=== PATIENT | female | born 1995 | race Caucasian/White ===

== ENCOUNTER 2018-06-10 18:42 | Emergency (ER) | payer OTHER ==
[2018-06-10] MEDS ORDERED: PROMETHAZINE HCL INJ 50 MG/1 ML VIAL IM PRN (19:35)
[2018-06-10] MEDS ORDERED: RINGERS SOLUTION,LACTATED 1,000 ML IV ONE (19:36)
--- NOTE | 2018-06-10 19:37 | ER Document Report ---
ED Medical Screen (RME) - General Chief Complaint: Flu Symptoms Stated Complaint: VOMITING/FEVER Time Seen by Provider: 06/10/18 19:35 Notes: 23 years old female who is about 5 months presents today with nausea and vomiting. No diarrhea. She was exposed to her son who had gastroenteritis. - Related Data Allergies/Adverse Reactions: No Known Allergies Allergy (Unverified 06/10/18 18:46) Physical Exam - Vital signs Vitals: Temp Pulse Resp BP Pulse Ox 98.4 F 108 H 18 110/73 100 06/10/18 18:53 06/10/18 18:53 06/10/18 18:53 06/10/18 18:53 06/10/18 18:53 Course - Vital Signs Vital signs: Temp Pulse Resp BP Pulse Ox 98.4 F 108 H 18 110/73 100 06/10/18 18:53 06/10/18 18:53 06/10/18 18:53 06/10/18 18:53 06/10/18 18:53
[2018-06-10] MEDS ORDERED: PROMETHAZINE HCL INJ 25 MG/1 ML VIAL ONE (20:15)
[2018-06-10 21:06] LABS: A TYPE INFLUENZA AG NEGATIVE (NEGATIVE); B INFLUENZA AG NEGATIVE (NEGATIVE)
--- NOTE | 2018-06-10 21:30 | ER Document Report ---
ED GI/ - General Chief Complaint: Flu Symptoms Stated Complaint: VOMITING/FEVER Time Seen by Provider: 06/10/18 19:35 Notes: Patient is a 23-year-old female that comes to the emergency department for chief complaint of vomiting and diarrhea, approximately 8 times of each, symptoms started today. Denies fever. Patient is at 20 weeks gestation. She denies abdominal pain, she denies vaginal bleeding or discharge, she states she is feeling baby moving normally. She was medicated in triage, she states she is much improved after this, she has started drinking fluids. Patient was exposed to her 2-year-old son who has had nausea, vomiting, diarrhea, and fever for the past 4 days. Patient takes no daily medications, denies any medical history. Has been at bedside. TRAVEL OUTSIDE OF THE [place] IN LAST 30 DAYS: No - Related Data Allergies/Adverse Reactions: No Known Allergies Allergy (Unverified 06/10/18 18:46) Past Medical History - General Information source: Patient - Social History Smoking Status: Never Smoker Frequency of alcohol use: None Drug Abuse: None Lives with: Family Family History: Reviewed & Not Pertinent Patient has suicidal ideation: No Patient has homicidal ideation: No - Medical History Medical History: Negative Renal/ Medical History: Denies: Hx Peritoneal Dialysis Surgical Hx: Negative - Immunizations Immunizations up to date: Yes Hx Diphtheria, Pertussis, Tetanus Vaccination: Yes Review of Systems - Review of Systems Constitutional: No symptoms reported EENT: No symptoms reported Cardiovascular: No symptoms reported Respiratory: No symptoms reported Gastrointestinal: See HPI Genitourinary: No symptoms reported Female Genitourinary: See HPI Musculoskeletal: No symptoms reported Skin: No symptoms reported Hematologic/Lymphatic: No symptoms reported Neurological/Psychological: No symptoms reported Physical Exam - Vital signs Vitals: Temp Pulse Resp BP Pulse Ox 98.4 F 108 H 18 110/73 100 06/10/18 18:53 06/10/18 18:53 06/10/18 18:53 06/10/18 18:53 06/10/18 18:53 - Notes Notes: GENERAL: Alert, interacts well. No acute distress. HEAD: Normocephalic, atraumatic. EYES: Pupils equal, round, and reactive to light. Extraocular movements intact. ENT: Oral mucosa very dry, tongue midline. Oropharynx unremarkable. Airway patent. Nares patent, no nasal septal hematoma, TM's intact. NECK: Full range of motion. Supple. Trachea midline. LUNGS: Clear to auscultation bilaterally, no wheezes, rales, or rhonchi. No respiratory distress. HEART: Regular rate and rhythm. No murmur ABDOMEN: Gravid abdomen, nontender, no signs of guarding or rigidity. GENITOURINARY: Deferred EXTREMITIES: Moves all 4 extremities spontaneously. No edema, normal radial and dorsalis pedis pulses bilaterally. No cyanosis. BACK: no cervical, thoracic, lumbar midline tenderness. No saddle anesthesia, normal distal neurovascular exam. NEUROLOGICAL: Alert and oriented x3. Normal speech. [cranial nerves II through XII grossly intact]. PSYCH: Normal affect, normal mood. SKIN: Warm, dry, normal turgor. No rashes or lesions noted. Course - Re-evaluation Re-evalutation: Patient is smiling and well-appearing. Unremarkable abdomen. CBC unremarkable, influenza is negative, urinalysis shows ketones and elevated specific gravity. Patient was given 2 IV normal saline boluses. After Phenergan she states she feels excellent, she tolerated p.o. without any difficulty. She does have sick family members. Requesting to leave. Tachycardia has resolved. Because she did so well with Phenergan here she will be provided with Phenergan at home. I do suspect this is viral. Discussed with patient expectations, follow-up, and return precautions in detail. Patient states satisfaction and agreement. Stable at time of discharge. - Vital Signs Vital signs: Temp Pulse Resp BP Pulse Ox 98.2 F 78 18 125/68 99 06/10/18 23:45 06/10/18 23:45 06/10/18 23:45 06/10/18 23:45 06/10/18 23:45 - Laboratory Result Diagrams: 06/10/18 21:38 Laboratory results interpreted by me: 06/10/18 06/10/18 21:30 21:38 Carbon Dioxide 21 L Creatinine 0.51 L Urine Protein 30 H Urine Ketones 80 H Discharge - Discharge Clinical Impression: Nausea vomiting and diarrhea, Dehydration Condition: Stable Disposition: HOME, SELF-CARE Additional Instructions: Continue rehydration at home. Take Phenergan as needed for nausea/vomiting, start with clear fluids, progress to bland diet. Follow-up with primary care/[facility]. Return if you worsen including abdominal pain that is worsening, vomiting that is not controlled, dizziness, vaginal bleeding, or any other concerning or worsening symptoms. Prescriptions: Promethazine HCl [Phenergan 25 mg Tablet] 25 mg PO Q6H PRN #15 tablet PRN Reason:
[2018-06-10 22:01] LABS: APPEARANCE,URINE CLOUDY; BILIRUBIN,URINE NEGATIVE (NEGATIVE); COLOR,URINE YELLOW; GLUCOSE, URINE NEGATIVE (NEGATIVE); KETONES,URINE 80 mg/dL (NEGATIVE); LEUKOCYTE ESTERASE,URINE NEGATIVE (NEGATIVE); NITRITE,URINE NEGATIVE (NEGATIVE); PROTEIN,URINE 30 mg/dL (NEGATIVE); URINE SPECIFIC GRAVITY 1.029; UROBILINOGEN,URINE NEGATIVE mg/dL (<2.0)
[2018-06-10 22:12] LABS: ALANINE AMINOTRANSFERASE 33 U/L (9-52); ALKALINE PHOSPHATASE 90 U/L (38-126); ANION GAP 10 (5-19); ASPARTATE AMINO TRANSFERASE 32 U/L (14-36); BILIRUBIN,DIRECT 0.2 mg/dL (0.0-0.4); BILIRUBIN,TOTAL 0.5 mg/dL (0.2-1.3); BLOOD UREA NITROGEN 9 mg/dL (7-20); CALCIUM 10.1 mg/dL (8.4-10.2); CARBON DIOXIDE 21 mmol/L (22-30); CHLORIDE 107 mmol/L (98-107); GLUCOSE 82 mg/dL (75-110); POTASSIUM 4.5 mmol/L (3.6-5.0); SODIUM 137.7 mmol/L (137-145)
[2018-06-10] MEDS ORDERED: NORMAL SALINE 1000 ML 1,000 ML IV ONE (22:20)
[2018-06-11 02:58] VITALS: BP 125/68
== END 2018-06-10 23:45 | disposition home or self-care (01) ==
LOC: ER 18:42
DX: O26.92 Pregnancy related conditions, unspecified, second trimester (principal); E86.0 Dehydration; R50.9 Fever, unspecified; R11.2 Nausea with vomiting, unspecified; R19.7 Diarrhea, unspecified; Z3A.20 20 weeks gestation of pregnancy
CPT/HCPCS: 99283; 96372; 96360; 36415; 80053; 81001; 87804; J2550; J7030; J7120

== ENCOUNTER 2018-08-15 13:49 | Outpatient (CLI) | payer OTHER ==
[2018-08-15] MEDS ORDERED: DIPHENHYDRAMINE HCL 25 MG CAPSULE PO PRN (14:05)
[2018-08-15 15:24] LABS: APPEARANCE,URINE CLOUDY; BILIRUBIN,URINE NEGATIVE (NEGATIVE); CALCIUM OXALATE CRYSTALS,URINE FEW /HPF; COLOR,URINE YELLOW; GLUCOSE, URINE NEGATIVE (NEGATIVE); KETONES,URINE TRACE mg/dL (NEGATIVE); LEUKOCYTE ESTERASE,URINE SMALL (NEGATIVE); NITRITE,URINE NEGATIVE (NEGATIVE); PROTEIN,URINE NEGATIVE (NEGATIVE); URINE SPECIFIC GRAVITY 1.029; UROBILINOGEN,URINE NEGATIVE mg/dL (<2.0)
[2018-08-15 15:37] LABS: URINE AMPHETAMINES SCREEN NEGATIVE; URINE BARBITURATES SCREEN NEGATIVE; URINE BENZODIAZEPINES SCREEN NEGATIVE; URINE COCAINE SCREEN NEGATIVE; URINE MARIJUANA (THC) SCREEN NEGATIVE; URINE METHADONE SCREEN NEGATIVE; URINE PHENCYCLIDINE SCREEN NEGATIVE
== END 2018-08-15 15:42 | disposition home or self-care (01) ==
LOC: LC 13:49
PROVIDERS: ATTEND Student in an Organized Health Care Education/Training Program
PROC: 4A1HXCZ Monitoring of Products of Conception, Cardiac Rate, External Approach (ICD-10-PCS; principal; 2018-08-15)
DX: O26.893 Other specified pregnancy related conditions, third trimester (principal); Z3A.28 28 weeks gestation of pregnancy
CPT/HCPCS: 80307; 81001

== ENCOUNTER 2018-09-08 13:26 | Outpatient (CLI) | payer OTHER ==
[2018-09-08 14:31] LABS: APPEARANCE,URINE SLIGHTLY-CLOUDY; BILIRUBIN,URINE NEGATIVE (NEGATIVE); CALCIUM OXALATE CRYSTALS,URINE MODERATE /HPF; COLOR,URINE YELLOW; GLUCOSE, URINE NEGATIVE (NEGATIVE); KETONES,URINE NEGATIVE (NEGATIVE); LEUKOCYTE ESTERASE,URINE NEGATIVE (NEGATIVE); NITRITE,URINE NEGATIVE (NEGATIVE); PROTEIN,URINE NEGATIVE (NEGATIVE); URINE SPECIFIC GRAVITY 1.027; UROBILINOGEN,URINE NEGATIVE mg/dL (<2.0)
[2018-09-08 14:54] LABS: URINE AMPHETAMINES SCREEN NEGATIVE; URINE BARBITURATES SCREEN NEGATIVE; URINE BENZODIAZEPINES SCREEN NEGATIVE; URINE MARIJUANA (THC) SCREEN NEGATIVE; URINE PHENCYCLIDINE SCREEN NEGATIVE
[2018-09-08 14:56] LABS: URINE COCAINE SCREEN NEGATIVE
[2018-09-08 14:57] LABS: URINE METHADONE SCREEN NEGATIVE
== END 2018-09-08 14:40 | disposition home or self-care (01) ==
LOC: LC 13:26
PROVIDERS: ATTEND Obstetrics & Gynecology
PROC: 4A1HXCZ Monitoring of Products of Conception, Cardiac Rate, External Approach (ICD-10-PCS; principal; 2018-09-08)
DX: O47.03 False labor before 37 completed weeks of gestation, third trimester (principal); Z3A.31 31 weeks gestation of pregnancy
CPT/HCPCS: 80307; 81001; 84112